=== PATIENT | male | born 1945 | race Caucasian/White ===

== ENCOUNTER 2018-05-21 15:46 | Emergency (ER) | payer OTHER, MEDICARE ==
[~2018-05-21] VITALS: Ht 180.3 cm; Wt 112.0 kg
[~2018-05-21 15:46] MED LIST: AMARYL2 MG PO; AZITHROMYCIN 2250 MG PO; CARDIZEM CD240 MG PO; CEFUROXIME250 MG PO; COUMADIN 2.5MG2.5 M1 PO; COUMADIN 5 MG TA5 M1 PO; COZAAR 25 MG TA25 M1 PO; ELIQUIS5 MG PO; HYDROCODONE-AP1 EAC6 PO; KLOR-CON 1010 MEQ PO; LASIX 20 MG TAB20 MG PO; LASIX 40 MG TAB40 M2 PO; LEVAQUIN 500 M500 M2 PO; LOPRESSOR25 PO; MUCINEX TA600 MG/TA1 PO; POTASSIUM GLUC500 MG PO; PREDNISONE 20 M20 MG PO; VENTOLIN HFA 1818 GM INH; lasix PO; lisinopril; metoprolol PO; simvastatin PO
[2018-05-21 16:03] LABS: URINE BLOOD NEGATIVE (Negative); URINE CLARITY CLEAR; URINE COLOR YELLOW; URINE GLUCOSE-RANDOM NEGATIVE (Negative); URINE KETONES 1+ (Negative); URINE LEUKOCYTES-REFLEX NEGATIVE (Negative); URINE NITRITE-REFLEX NEGATIVE (Negative); URINE PROTEIN TRACE (Negative); URINE SPECIFIC GRAVITY >= 1.030 (1.005-1.030); URINE UROBILINOGEN 0.2 E.U./dl (0.2-1.0)
[2018-05-21 16:05] LABS: ICTOTEST (BILI CONFIRMATORY) Negative (Negative); URINE BILIRUBIN 1+ (Negative)
[2018-05-21 16:19] LABS: ABSOLUTE MONOCYTES 0.6 thou/uL (0.0-1.2); ABSOLUTE NEUTROPHILS 6.3 thou/uL (1.6-8.1); BASOPHILS 0.4 %; EOSINOPHILS 0.3 %; HEMOGLOBIN 16.2 gm/dL (14.0-18.0); LYMPHOCYTES 12.5 %; MCH 35.5 pg (26.0-34.0); MCHC 33.7 g/dL (28.0-37.0); MCV 105.3 fL (80.0-100.0); MPV 7.9 fl. (7.2-11.1); NUCLEATED RBCS 0 /100WBC; PLATELET COUNT* 168 thou/uL (150-400); POLYS 79.8 %; RBC 4.56 mil/uL (4.50-6.00); RDW-CV 14.2 % (10.5-14.5); WBC 7.9 thou/uL (4.0-11.0)
[2018-05-21 16:27] LABS: CALCIUM 8.8 mg/dL (8.5-10.1); POTASSIUM 4.6 mmol/L (3.5-5.1)
[2018-05-21 16:32] LABS: ALBUMIN 3.6 g/dL (3.4-5.0); TOTAL BILIRUBIN 0.8 mg/dL (<0.1-1.0); TOTAL PROTEIN 7.6 g/dL (6.4-8.2)
[2018-05-21] MEDS ORDERED: ZOFRAN ODT4 MG PO (17:49)
[2018-05-21] MEDS ORDERED: BENTYL 20 MG TA20 M1 PO (17:49)
[2018-05-21 17:58] VITALS: BP 141/78
--- NOTE | 2018-05-22 11:09 | EKG ---
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: Suman JOHNSON : 1945 Requested By: Kinga Lam Order Number: [id number] MD: Trevor Murphy Measurements Intervals [place] Rate: 95 P: IN: QRS: -123 QRSD: 163 T: -2 QT: 442 QTc: 556 Interpretive Statements Pacemaker spikes or artifacts Atrial fibrillation Right bundle branch block Compared to ECG 06/28/2016 22:18:40 Atrial flutter no longer present Ventricular tachycardia no longer present Left anterior fascicular block no longer present Electronically Signed On 05-22-2018 11:09:22 SOX ANALYST by Trevor Murphy [email or web address] <ELECTRONICALLY SIGNED> By: Trevor Murphy MD, FAC 05/22/18 1109 1603 1603 Trevor Murphy MD, FAC /EPI
== END 2018-05-21 18:09 | disposition home or self-care (01) ==
LOC: M.ERS 15:46
PROVIDERS: Nurse Practitioner Family
DX: K52.9 Noninfective gastroenteritis and colitis, unspecified (principal); I11.0 Hypertensive heart disease with heart failure; I50.9 Heart failure, unspecified; E66.01 Morbid (severe) obesity due to excess calories; Z68.34 Body mass index [BMI] 34.0-34.9, adult; I48.91 Unspecified atrial fibrillation; Z98.84 Bariatric surgery status; Z79.01 Long term (current) use of anticoagulants